=== PATIENT | female | born 1990 ===

== ENCOUNTER 2024-07-14 23:14 | Emergency (ER) | payer MEDICAID, SELFPAY ==
[2024-07-14 23:23] VITALS: BP 136/89; PULSE 87; RESP 20; TEMP 36.4; O2SAT 100
--- NOTE | 2024-07-14 23:30 | EDNOTE_ITS ---
ED Skin Abcess FB-RME/HPI General Chief complaint: Allergic Reaction Stated complaint: RASH, ITCHING Time Seen by Provider: 07/14/24 23:22 Source: patient, RN notes reviewed and old records reviewed Arrival date/time: 07/14/24 23:14 Mode of arrival: ambulatory Limitations: no limitations RME / HPI RME / HPI narrative: 34yof approx 37 weeks gestation presents to ED for generalized rash and itching that initiated this morning. Patient reports she was prescribed Flagyl yesterday for BV, she has taken 3 doses. Patient has never taken Flagyl in the past. No tongue/throat swelling, shortness of breath, nausea/vomiting or RUQ abdominal pain reported. Denies vaginal bleeding or pelvic pain. No medications or treatment since symptom onset. Related Data Previous Rx's ?Medication ?Instructions ?Recorded vitamins with calcium 1 tab PO QAM #60 tabs 12/07/23 no.72-iron 29 mg-folic acid 1 mg tablet acetaminophen 325 mg capsule 650 mg (2 x 325 mg) PO Q8HR PRN 02/21/24 fever or pain #30 caps ondansetron 4 mg disintegrating 4 mg PO Q8H PRN nausea and 02/21/24 tablet vomiting #10 tabs cetirizine 10 mg tablet (Zyrtec) 10 mg PO QDAY #20 tabs 07/15/24 clindamycin HCl 300 mg capsule 300 mg PO BID 7 days #14 caps 07/15/24 diphenhydramine HCl 25 mg capsule 50 mg (2 x 25 mg) PO Q4H PRN 07/15/24 (Benadryl) itching #30 caps famotidine 40 mg tablet (Pepcid) 40 mg PO QDAY #20 tabs 07/15/24 Allergies Allergy/AdvReac Type Severity Reaction Status Date / Time No Known Allergies Allergy Verified 01/29/24 17:52 Review of Systems Review of Systems Systems Reviewed: All systems reviewed, normal except as documented Constitutional Constitutional: Denies chills, Denies fever(s) and Denies headache(s) ENT Ears, Nose, Mouth, and Throat: Denies headache(s), Denies throat swelling and Denies tongue swelling Cardiovascular Cardiovascular: Denies dyspnea Respiratory Respiratory: Denies dyspnea Gastrointestinal Gastrointestinal: Denies abdominal pain, Denies nausea and Denies vomiting Genitourinary Genitourinary: Denies abnormal vaginal bleeding and Denies pelvic pain Integumentary/Breasts Skin/Breast: Reports pruritus and Reports rash Neurologic Neurologic: Denies headache(s) Allergic/Immunologic Allergic/Immunologic: Denies throat swelling and Denies tongue swelling Past Medical History Past Medical History RESPIRATORY: Positive Asthma GASTROINTESTINAL: Positive Obesity PSYCHO/SOCIAL: Positive Anxiety Surgical History SURGICAL: Positive Knee Sx (bilateral) and of Back Surgery ED Exam General Limitations: Present no limitations General appearance: Present alert and in no apparent distress Head Head exam: Present atraumatic and normocephalic Eye Eye exam: Present normal appearance, PERRL and EOMI ENT ENT exam: Present normal exam and mucous membranes moist Neck Neck exam: Present normal inspection and full ROM Chest Chest inspection: Present normal inspection and symmetric chest wall rise Respiratory Respiratory exam: Present normal lung sounds bilaterally; Absent respiratory distress, wheezes or stridor Cardiovascular Cardiovascular exam: Present regular rate and normal rhythm Abdominal Exam Abdominal exam: Present soft and other (Gravid uterus); Absent tenderness Extremities Exam Extremities exam: Present normal inspection and full ROM Neurological Exam Neurological exam: Present alert and oriented X3 Psychiatric Psychiatric exam: Present normal affect and normal mood Skin Skin exam: Present other (Very faint maculopapular rash to b/l upper extremities) Course Quality Measures none Orders Category Date Time Status CMP [Comprehensive Metabolic Panel] Stat Lab 07/14/24 23:35 Completed DiphenhydrAMINE [Benadryl] Med 07/14/24 23:29 Discontinued 50 mg PO X1 ONE Famotidine [Pepcid] Med 07/14/24 23:29 Discontinued 40 mg PO X1 ONE lorataDINE [Claritin] Med 07/15/24 00:36 Discontinued 10 mg PO X1 ONE Vital Signs Vital signs: Vital Signs Temperature 97.6 F 07/14/24 23:23 Pulse Rate 87 07/14/24 23:23 Respiratory Rate 20 07/14/24 23:23 Blood Pressure 136/89 H 07/14/24 23:23 Pulse Oximetry (%) 100 07/14/24 23:23 Oxygen Delivery Method Room Air 07/14/24 23:23 Skin / Abscess / Foreign Body MDM Narrative MDM Narrative:: 34yof approx 37 weeks gestation presents to ED for generalized rash and itching that initiated this morning. Patient reports she was prescribed Flagyl yesterday for BV, she has taken 3 doses. Patient has never taken Flagyl in the past. No tongue/throat swelling, shortness of breath, nausea/vomiting or RUQ abdominal pain reported. Denies vaginal bleeding or pelvic pain. No medications or treatment since symptom onset. Patient reassessed. Itching improved after medications administered. Patient is well-appearing, no evidence of airway compromise or respiratory distress. Recommended Benadryl, Pepcid, Zyrtec as needed. Instructed to discontinue flagyl, will rx clindamycin for BV. Stable for discharge, RTED precautions given. Patient data External records reviewed:: [facility] previous records (02/21/2024 ED visit for covid) Clinical information provided by:: patient Social determinants that could affect healthcare access:: none Patient has the following chronic illnesses:: anxiety How is presenting disease/condition affected by chronic disease/condition?: exacerbated by Evaluation data The following diagnostics were reviewed and interpreted by me:: lab results Lab and/or radiology exams considered but not ordered:: OB ultrasound: Denies vaginal bleeding or pelvic pain Interpretation Summary: Alk phos mildly elevated. T. bili and AST/ALT wnl Medications / Prescriptions Medications or Prescriptions considered but not ordered:: Steroid Medication administrations:: Medication Administration History Discontinued Medications Diphenhydramine HCl (Diphenhydramine 25 Mg Capsule) 50 mg PO X1 ONE Stop: 07/14/24 23:30 Last Admin: 07/14/24 23:38 Dose: 50 mg Documented By: OA Famotidine (Famotidine 20 Mg Tablet) 40 mg PO X1 ONE Stop: 07/14/24 23:30 Last Admin: 07/14/24 23:38 Dose: 40 mg Documented By: OA Loratadine (Loratadine 10 Mg Tablet) 10 mg PO X1 ONE Stop: 07/15/24 00:37 Last Admin: 07/15/24 00:52 Dose: 10 mg Documented By: CB Above medications administered in ED Consultations Consultation(s) initiated? (list below): No Diagnosis Skin/Abscess Differential Diagnosis: urticaria, allergic reaction to drug, insect bites and contact dermatitis Most likely diagnosis given after review of the tests above:: Allergic reaction to drug Admission Indicated Admission indicated?: not indicated Admission Request Was there a request for admission?: No Disposition Plan Disposition Plan: Discharge Discharge Attestation Discharge Attestation: The patient and all family members were given an opportunity to ask questions and understood the discharge instructions. Discharge instructions specifically effects, indications for sooner follow up or return to the emergency department, and the expected course of current diagnosis. Patient condition: Stable Discharge Plan Plan Patient Disposition: HOME (Self Care) Patient condition on transfer: Stable Prescriptions/Referrals Prescriptions/Med Rec: New clindamycin HCl 300 mg capsule 300 mg PO BID 7 Days Qty: 14 0RF diphenhydramine HCl [Benadryl] 25 mg capsule 50 mg PO Q4H PRN (Reason: itching) Qty: 30 0RF cetirizine [Zyrtec] 10 mg tablet 10 mg PO QDAY Qty: 20 0RF famotidine [Pepcid] 40 mg tablet 40 mg PO QDAY Qty: 20 0RF No Action ondansetron 4 mg tablet,disintegrating 4 mg PO Q8H PRN (Reason: nausea and vomiting) Qty: 10 0RF acetaminophen 325 mg capsule 650 mg PO Q8HR PRN (Reason: fever or pain) Qty: 30 0RF PNV,calcium 72-iron,carb-folic 29 mg iron- 1 mg tablet 1 tab PO QAM Qty: 60 1RF Referrals: Sherman Parekh MD [Primary Care Provider] - In 1 week Problem List Clinical Impression: Allergic reaction, Pruritus Patient/Caregiver Discharge Instructions Education Materials: ED Medicine Reaction: Allergic Additional Instructions: Stop the metronidazole. Print Language: Lao Stand Alone Forms: Raquel Award Info., Patient Portal Info Letter PA/FIRE EXTINGUISHER TESTER Supervising Physician PA/FIRE EXTINGUISHER TESTER Supervising Physician: Pritesh
[2024-07-14] MEDS: DiphenhydrAMINE 25 MG CAPSULE 50 MG PO (23:38)
[2024-07-14] MEDS: FAMOTIDINE 20 MG TABLET 40 MG PO (23:38)
[2024-07-15 00:02] LABS: Alanine Aminotransferase 8 U/L (10-49); Albumin, Serum 3.9 gm/dL (3.5-5.0); Albumin/Globulin Ratio 1.4 (1.2-2.2); Alkaline Phosphatase 148 U/L (46-116); Anion Gap 11 (7-16); Aspartate Amino Transferase 23 U/L (0-34); BUN/Creatinine Ratio 8 Ratio (12-20); Bilirubin,Total 0.4 mg/dL (0.3-1.2); Blood Urea Nitrogen < 5 mg/dL (9-23); Calcium 8.7 mg/dL (8.3-10.6); Calcium (Corrected) 8.8 mg/dL (8.5-10.1); Carbon Dioxide 20.8 mMol/L (20.0-31.0); Chloride 106 mMol/L (98-107); Creatinine (Component) 0.6 mg/dL (0.6-1.3); Globulin 2.8 gm/dL (2.3-3.5); Glucose 108 mg/dL (74-106); Osmolality,Calculated 273 (275-295); Potassium 3.6 mMol/L (3.4-5.1); Sodium 138 mMol/L (136-145); Total Protein 6.7 gm/dL (5.7-8.2); eGFR > 60 See Note
[2024-07-15] MEDS: lorataDINE 10 MG TABLET PO (00:52)
== END 2024-07-15 01:25 | disposition home or self-care (01) ==
PROVIDERS: Physician Assistant; Emergency Provider Emergency Medicine; PCP Family Medicine
DX: L29.9 Pruritus, unspecified (principal)
CPT/HCPCS: 36415; 80053; 99283; A9270

== ENCOUNTER 2024-07-15 05:04 | Emergency (ER) | payer MEDICAID, SELFPAY ==
[2024-07-15 05:05] VITALS: BMI 34.7
[2024-07-15 05:24] VITALS: BP 134/90; PULSE 78; RESP 22; TEMP 36.5; O2SAT 100
== END 2024-07-15 06:04 | disposition left against medical advice (07) ==
LOC: SERX 07:08
PROVIDERS: Emergency Provider Emergency Medicine
DX: Z53.21 Procedure and treatment not carried out due to patient leaving prior to being seen by health care provider (principal)
CPT/HCPCS: 99281

== ENCOUNTER 2024-08-06 08:11 | Inpatient (IN) | payer MEDICAID, SELFPAY ==
--- NOTE | 2024-07-28 18:54 | ESHP_ITS ---
RE: BEHZAD POSADA : 1990 DATE OF ADMISSION: 08/06/2024 HISTORY OF PRESENT ILLNESS: This is a 34-year-old 2, para 1 with due date of August 05 with intrauterine at 40 weeks who presents for induction of labor. The patient denies any leaking or bleeding. She reports normal movement. She has occasional contractions. Her care was complicated by iron deficiency anemia and elevated blood pressures at 36-37 weeks gestation in the office. A 24 hour urine collection showed 95 mg of protein and normal PIH blood work. Her labs today show no protein in her urine and her protein creatinine ratio of 0.13 with normal PIH blood work. ALLERGIES: METRONIDAZOLE. MEDICATIONS: 1. multivitamin 1 p.o. daily. 2. Ferrous sulfate 325 mg 1 p.o. b.i.d. SOCIAL HISTORY: The patient uses marijuana. She denies any alcohol use. PAST MEDICAL HISTORY: Bipolar disorder, history of alcoholism in the past, history of Chlamydial cervicitis, genuine stress urinary incontinence, mild COVID-19 infection in 2019, iron deficiency anemia. FAMILY HISTORY: Mother and brother have diabetes. OBSTETRIC HISTORY: In 2019, 40 week, normal vaginal delivery, 6 pounds 7 ounce male. No complications. PAST SURGICAL HISTORY: Denies. REVIEW OF SYSTEMS: She denies any chest pain, palpitations, cough, fever, shortness of breath or lower extremity pain. She has a headache but no change in vision, right upper quadrant pain or swelling in her face or hands. PHYSICAL EXAMINATION: VITAL SIGNS: Blood pressure 175/106 and 169/93 heart rate 88, respirations 18, temperature 98.6, weight 202 pounds. HEENT: Oropharynx and sclerae are clear. LUNGS: Clear to auscultation bilaterally. HEART: Regular rate and rhythm. ABDOMEN: Gravid term size, consistent with estimated weight 7.5 pounds. PELVIC: Closed /thick / -3 . EXTREMITIES: Nontender. SKIN: No gross rashes or lesions. NEUROLOGIC: No focal deficits. ASSESSMENT AND PLAN: Intrauterine at 40 weeks 1d, Gestational HTN, induction of labor. Anticipate spontaneous vaginal delivery. Informed consent was obtained. The patient made aware of the risks, complications, alternatives, and benefits of the proposed procedure and she agrees. She is aware of the risk of operative vaginal delivery, delivery and agrees with these modes of delivery if indicated. Labetalol 200mg po. Cervidil 20mg vaginal supp. DT: 16:51:47 TT: 18:30:00 Ref: [id number] - TID: [id number] MTDD
[2024-08-06] VITALS (214 sets, daily range): BP systolic 118–204; BP diastolic 59–108; PULSE 67–95; RESP 18–20; TEMP 36.3–36.9; O2SAT 80–100
[2024-08-06 09:19] LABS: Basophils % (Auto) 0 % (0-2.5); Eosinophils # (Auto) 0.1 Thou/mm3 (0.0-0.5); Eosinophils % (Auto) 2 % (0-10); Hematocrit 33.8 % (36.0-46.0); Hemoglobin 11.6 g/dL (12.0-16.0); Immature Granulocytes % (Auto) 1 % (0-0); Immature Granulocytes Auto 0.04 Thou/mm3 (0.00-0.00); Lymphocytes # (Auto) 1.5 Thou/mm3 (1.0-4.8); Lymphocytes % (Auto) 19 % (10-50); Mean Corpuscular HGB Conc 34.3 g/dl (31.0-37.0); Mean Corpuscular Volume 85 fL (80-100); Monocytes # (Auto) 0.4 Thou/mm3 (0.0-0.8); Monocytes % (Auto) 5 % (0-12); Neutrophils # (Auto) 6.1 Thou/mm3 (1.8-7.7); Neutrophils % (Auto) 75 % (37-80); Nucleated Red Blood Cell % 0 /100 WBC (0); Platelet Count 246 Thou/mm3 (140-440); RDW Standard Deviation 45.3 fL (36.4-46.3); White Blood Count 8.2 Thou/mm3 (3.6-11.0)
[2024-08-06 09:38] LABS: INR 0.9 (0.9-1.3); Partial Thromboplastin Time 28.5 Seconds (22.0-36.0); Prothrombin Time 10.3 Seconds (9.0-12.2)
[2024-08-06 09:47] LABS: Alanine Aminotransferase 9 U/L (10-49); Albumin, Serum 3.6 gm/dL (3.5-5.0); Albumin/Globulin Ratio 1.2 (1.2-2.2); Alkaline Phosphatase 162 U/L (46-116); Anion Gap 11 (7-16); Aspartate Amino Transferase 28 U/L (0-34); BUN/Creatinine Ratio 12 Ratio (12-20); Bilirubin,Total 0.5 mg/dL (0.3-1.2); Blood Urea Nitrogen 7 mg/dL (9-23); Calcium 8.5 mg/dL (8.3-10.6); Calcium (Corrected) 8.8 mg/dL (8.5-10.1); Carbon Dioxide 18.9 mMol/L (20.0-31.0); Chloride 108 mMol/L (98-107); Creatinine (Component) 0.6 mg/dL (0.6-1.3); Globulin 3.1 gm/dL (2.3-3.5); Glucose 79 mg/dL (74-106); Osmolality,Calculated 272 (275-295); Potassium 4.6 mMol/L (3.4-5.1); Sodium 138 mMol/L (136-145); Total Protein 6.7 gm/dL (5.7-8.2); Uric Acid 6.5 mg/dL (3.1-7.8); eGFR > 60 See Note
[2024-08-06 09:52] LABS: Collection Type, Urine Clean Catch
[2024-08-06 10:00] LABS: Amphetamine/Metham Scrn,Ur OB Negative (Negative); Benzoylecgonine Screen, Ur OB Negative (Negative); Opiate Screen,Urine OB Negative (Negative); THC Screen,Urine OB Negative (Negative)
[2024-08-06 10:02] LABS: Syphilis Nonreactive (Nonreactive)
[2024-08-06 10:06] LABS: Bilirubin,Urine Negative (Negative); Blood,Urine Negative (Negative); Clarity,Urine Clear (Clear/Hazy); Color,Urine Lt-Yellow (Lt Yel-Yel); Glucose, Urine Negative (Negative); Ketones,Urine Negative (Negative); Leukocyte Esterase,Urine Positive (Negative); Nitrite,Urine Negative (Negative); Protein,Urine Negative (Neg - Trace); RBC,Urine 2 /hpf (0-3); Specific Gravity,Urine 1.018 (1.001-1.035); Squamous Epithelial Cell,Urine 8 /hpf (0-5); Urobilinogen,Urine Negative mg/dL (0.0-1.0); WBC,Urine 8 /hpf (0-5)
[2024-08-06 10:07] LABS: Fibrinogen 646 mg/dL (175-375)
[2024-08-06 10:14] LABS: Creatinine,Random Urine 101 mg/dL (30-125); Protein Total, Random Urine 13 mg/dL (1-14)
--- NOTE | 2024-08-06 10:16 | XR_ITS ---
Examination: age Limited Technique: Limited transabdominal sonographic images pelvis Exam date and time: August 06, 2024 1043 hrs. Indications: Postoperative today, induction today, unknown presentation and weight Findings: Viable intrauterine gestation cephalic presentation spine maternal left Cardiac motion 136 bpm Estimated weight 3506.6 g Estimated age 38 weeks 4 days Impression: Viable intrauterine gestation cephalic presentation
[2024-08-06] MEDS: LABETALOL 100 MG TABLET 200 MG PO ×2 (11:27→20:40)
[2024-08-06] MEDS: ACETAMINOPHEN 325 MG TABLET 975 MG PO (11:54)
[2024-08-06] MEDS: DINOPROSTONE 10 MG VAG.SUPP VAGINAL (11:56)
[2024-08-07] VITALS (118 sets, daily range): BP systolic 105–155; BP diastolic 65–94; PULSE 57–94; RESP 12–19; TEMP 36.5–37.1; O2SAT 85–100
[2024-08-07] MEDS: MISOPROSTOL 50 mCg TABLET PO ×2 (00:44→05:02)
[2024-08-07] MEDS: ACETAMINOPHEN 325 MG TABLET 975 MG PO (05:08)
--- NOTE | 2024-08-07 07:49 | PD.LDPN ---
Documentation for date of: 08/07/24 OB Labor Progress Note Pain Control Comments: None needed Pelvic Exam Dilation (cm): closed Effacement (%): thick station: -3 Amniotic membrane status: Intact Contractions Contraction frequency: q 3 min Status status: Category l Assessment and Plan Comments: Failed Induction Gestational HTN BP controlled with Labetalol Delivery Patient was made aware of the risks, complications, alternatives and benefits of delivery and she agrees.
[2024-08-07] MEDS: FAMOTIDINE INJ 10 MG/ML VIAL 2 ML 20 MG IV (08:57)
[2024-08-07] MEDS: CITRIC ACID/SODIUM CITR 15 ML UDC (BICITRA) 30 ML PO (08:58)
[2024-08-07] MEDS: ceFAZolin/D5W 2 GM IV 2 GM/100 ML BAG IV (08:58)
--- NOTE | 2024-08-07 09:15 | PD.LDDS ---
DS: Providers Provider Date of admission: 08/06/24 08:11 Primary care physician: Physician No Primary/Family Admitting Provider: Saulo Bacon MD Attending Provider on Admission: Saulo Bacon MD Attending Provider on DC: Saulo Bacon MD Discharging Provider: Saulo Bacon MD DS: Diagnosis Problem List Completed Was Problem List Reviewed/Reconciled?: Yes Summary/Hosp Course Peripartum Data Procedures: Procedures Operation Date: 08/07/24 09:15 <No data on this case meets the specified criteria> Time Spent with Patient Time attestation: Total time spent providing and/or coordinating discharge services: Exam Vital Signs Temp Pulse Resp BP Pulse Ox 98.1 F 75 18 120/75 100 08/07/24 07:19 08/07/24 07:17 08/07/24 07:19 08/07/24 07:17 08/07/24 07:56 Discharge Plan Plan Patient Disposition: HOME (Self Care) Patient condition on transfer: Stable Prescriptions/Referrals Prescriptions/Med Rec: New hydrocodone-acetaminophen 5-325 mg tablet 1 tab PO Q6H MDD 4 PRN (Reason: pain) Qty: 20 0RF ibuprofen 600 mg tablet 600 mg PO Q6H PRN (Reason: pain) Qty: 30 0RF Continued PNV,calcium 72-iron,carb-folic 29 mg iron- 1 mg tablet 1 tab PO QAM Qty: 60 1RF Discontinued ondansetron 4 mg tablet,disintegrating 4 mg PO Q8H PRN (Reason: nausea and vomiting) Qty: 10 0RF acetaminophen 325 mg capsule 650 mg PO Q8HR PRN (Reason: fever or pain) Qty: 30 0RF diphenhydramine HCl [Benadryl] 25 mg capsule 50 mg PO Q4H PRN (Reason: itching) Qty: 30 0RF cetirizine [Zyrtec] 10 mg tablet 10 mg PO QDAY Qty: 20 0RF famotidine [Pepcid] 40 mg tablet 40 mg PO QDAY Qty: 20 0RF Referrals: No Primary/Family,Physician [Primary Care Provider] - Patient/Caregiver Discharge Instructions Discharge Activity: activity as tolerated Other Discharge Activity Instructions:: Follow up office 1 week. Print Language: Spanish Stand Alone Forms: Raquel Award Info., Patient Portal Info Letter Discharge Order Discharge Orders: Discharge (Routine); Ordered 08/09/24 Ordered By: Saulo Bacon Planned Discharge Date 08/09/24
--- NOTE | 2024-08-07 10:11 | PD.LDDELS ---
Data ([facility]) Data Hx Section: No : 2 Para: 1 Term: 1 : 0 : 0 Delivery Data ([facility]) Labor Data ROM Date: 08/07/24 ROM Time: 09:43 Rupture Type: AROM Amniotic Fluid: Clear Delivery Data EDC: 08/05/24 EDC calculated by:: LMP/early US confirmation Labor Onset Stage 1 Date: 08/07/24 Labor Onset Stage 1 Time: 09:43 Labor Onset Stage 2 Date: 08/07/24 Labor Onset Stage 2 Time: 09:43 Delivery Date: 08/07/24 Delivery Time: 09:43 Gestational age (weeks): 40 Gestational age (days): 2 Placenta Delivery Date: 08/07/24 Placenta Delivery Time: 09:44 Delivered by: Saulo Bacon Delivery nurse: Vicenta Mckenzie Other staff at delivery: Nurse Other staff at delivery: 2nd Nurse Other staff at delivery: RT Other staff at delivery: 2nd Nurse Other staff at delivery: Henrietta Orantes Other staff at delivery: Keya Mathias Other staff at delivery: toni Other staff at delivery: [facility] Delivery Method Delivery: Delivery Type: Primary Presentation: Vertex Position: OA Anesthesia Type Primary Anesthesia: Spinal Placenta Placenta Delivery: Manual Placenta Cultures Obtained: No Placenta Sent for Examination: No Cord Sample: Cord Blood Obtained EBL Estimated blood loss (ml): 600 Umbilical Cord Nuchal Cord: None Body Cord: None Additional Procedures none Complications Complications: None Data ([facility]) Data Infant Gender: Male Weight Grams: 3370 1 Minute Total: 8 5 Minute Total: 8
--- NOTE | 2024-08-07 12:22 | ESOP_ITS ---
RE: BEHZAD POSADA : 1990 DATE OF OPERATION: 08/07/2024 PREOPERATIVE DIAGNOSES: 1. Intrauterine at 40 weeks and 2 days. 2. Induction of labor. 3. Failed induction. POSTOPERATIVE DIAGNOSES: 1. Intrauterine at 40 weeks and 2 days. 2. Induction of labor. 3. Failed induction. PROCEDURE PERFORMED: Primary low transverse section via Pfannenstiel incision. SURGEON: Saulo Bacon DO GROUP ART SUPERVISOR: [facility] Downey ANESTHESIA: Spinal. ANESTHESIOLOGIST: Ruth Ann Nunez CRNA ESTIMATED BLOOD LOSS: 600 mL COMPLICATIONS: None. COUNTS: Correct. PATHOLOGY: None. FINDINGS: A live male . Cephalic presentation. Clear amniotic fluid. Apgars 8 and 8, weight 3370 grams. Clear amniotic fluids. Uterus, ovaries, fallopian tubes grossly within normal limits. Placenta was removed, complete and intact. DESCRIPTION OF PROCEDURE: After proper informed consent was obtained and the patient was made aware of the risks, complications, alternatives, and benefits of the proposed procedure, she was taken to the operating room where she underwent induction of spinal anesthesia. She was placed in the dorsal supine position with leftward tilt. She was prepped and draped in the usual sterile fashion. A timeout was performed. A Pfannenstiel skin incision was made with scalpel carried through to the underlying layer fascia with the Bovie. The fascia was nicked in the midline, incision was extended bilaterally with Bovie. The inferior aspect of the fascial incision was grasped with Yoan clamps, elevated. The underlying rectus muscles were dissected off with the Bovie. The rectus muscles were in the midline and apparently identified between two Jerez clamps and entered sharply with the Metzenbaum scissors. The incision was extended superiorly and inferiorly with good visualization of the bladder. The bladder blade was then inserted. The vesicouterine peritoneum was incised transversely and the bladder flap created digitally. Bladder blade was reinserted. The lower uterine segment was incised in transverse fashion with the scalpel. The incision was extended bilaterally digitally. The infant's head delivered. The mouth and nose suctioned with bulb suction. Shoulder and body delivered atraumatically. The cords were clamped and cut. The infant was sent off to awaiting pediatric staff. Cord blood and gases were sent. The placenta was then removed manually. The uterus exteriorized and cleared of all clots and debris. The uterine incision was repaired in #1-0 chromic catgut suture in a running locking fashion. The second layer of same suture was used to imbricate the first layer and obtained excellent hemostasis. The vesicouterine peritoneum was closed with 2-0 chromic catgut suture in running fashion. The uterus was returned to the abdomen. The gutters were cleared of all clots and debris. The fundus was firm and the peritoneum was closed with 0 chromic catgut suture in running fashion. The muscle was closed with 0 chromic catgut suture in running fashion. The fascia was closed with 0 Vicryl beginning at each angle and ending in the center in a running fashion. Subcutaneous tissue was irrigated with normal saline solution and found to be hemostatic and closed with 2-0 chromic catgut suture in a running fashion. The skin was closed with 4-0 Monocryl and Dermabond Prineo dressing was applied. A sterile pressure dressing was applied. She tolerated the procedure well. Counts were correct. I discussed with the patient, the nature of her condition, the intraoperative findings, and expectation for recovery. All questions answered. DT: 10:14:07 TT: 12:20:00 Ref: [id number] - TID: [id number]
[2024-08-07 15:52] LABS: Basophils % (Auto) 0 % (0-2.5); Eosinophils % (Auto) 0 % (0-10); Hematocrit 35.3 % (36.0-46.0); Immature Granulocytes % (Auto) 1 % (0-0); Lymphocytes # (Auto) 0.8 Thou/mm3 (1.0-4.8); Lymphocytes % (Auto) 4 % (10-50); Mean Corpuscular Hemoglobin 29.2 pg (25.0-35.0); Mean Corpuscular Volume 86 fL (80-100); Monocytes # (Auto) 0.2 Thou/mm3 (0.0-0.8); Monocytes % (Auto) 1 % (0-12); Neutrophils # (Auto) 18.8 Thou/mm3 (1.8-7.7); Neutrophils % (Auto) 94 % (37-80); Nucleated Red Blood Cell % 0 /100 WBC (0); Platelet Count 239 Thou/mm3 (140-440); RDW Standard Deviation 46.2 fL (36.4-46.3); Red Blood Count 4.11 Miln/mm3 (4.00-5.20); White Blood Count 19.9 Thou/mm3 (3.6-11.0)
[2024-08-07] MEDS: OXYTOCIN in NS 20 units 20 UNIT/1,000 ML BAG 125 UNIT IV (15:59)
--- NOTE | 2024-08-07 23:05 | PC.NURSE ---
Pt called out c/o pain at IV site on right wrist, stating that the pain in her arm felt like a pain scale of 15 out of 10. Upon assessment, pt IV site was swollen. Infusion was paused and IV @ right wrist was then discontinued. Pt was still receiving IV fluids and medications so nurse educated pt on having to place another IV in to continue treatment. Per pt, she was okay with it. I attempted 2 times on the left hand, both unsuccessful. Daylin RN tried 2 times on right arm @ bicep and forearm, both unsuccessful. Rebecca, charge nurse, attempted x1 @ right antecubital, successful insertion.
[2024-08-07] MEDS: KETOROLAC INJ 30 MG/ML VIAL IVP (23:11)
[2024-08-08] MEDS: HYDROcodone/APAP 5/325 TABLET 1 TAB PO (04:19)
[2024-08-08 04:20] VITALS: BP 124/77; PULSE 74; RESP 20; TEMP 36.3; O2SAT 99
[2024-08-08] MEDS: IBUPROFEN TAB 400 MG TABLET 800 MG PO ×2 (07:13→17:01)
[2024-08-08 08:00] VITALS: BP 113/73; PULSE 76; TEMP 36.7; O2SAT 98
--- NOTE | 2024-08-08 09:04 | ESPR_ITS ---
RE: BEHZAD POSADA : 1990 DATE OF SERVICE: 08/08/2024 SUBJECTIVE: Postop day #1, the patient denies any problem or complaint. She is voiding. She is ambulating. She is tolerating her diet. She is passing flatus. She denies any excessive vaginal bleeding. She denies any dizziness or lightheadedness. She denies any chest pain, palpitations, shortness of breath or lower extremity pain. OBJECTIVE: Vital Signs: Blood pressure 124/77, heart rate 74, respirations 20, temperature is 97.4, pulse ox is 99% on room air. Lungs: Clear to auscultation bilaterally. Heart: Regular rate and rhythm. Abdomen: Dressing is dry and intact. Fundus is firm. Extremities: Nontender. LABORATORY DATA: Hemoglobin pre-delivery is 11.6, postdelivery is 12.0. ASSESSMENT: Postop day #1, status post delivery. PLAN: Remove dressing, encourage ambulation, discontinue IV, possible discharge home tomorrow. DT: 08:01:36 TT: 09:03:00 Ref: [id number] - TID: [id number]
[2024-08-08 11:10] VITALS: BP 112/75; PULSE 64; RESP 16; O2SAT 98
[2024-08-08] MEDS: HYDROcodone/APAP 5/325 TABLET 2 TAB PO ×2 (11:12→21:29)
[2024-08-08 11:15] VITALS: BP 112/75; PULSE 64; RESP 19; TEMP 36.7; O2SAT 98
[2024-08-08] MEDS: Milk Of Magnesia Susp 30 ML UDC PO (17:01)
[2024-08-08 20:54] VITALS: BP 115/72; PULSE 87; RESP 16; TEMP 36.8; O2SAT 99
[2024-08-09] MEDS: IBUPROFEN TAB 400 MG TABLET 800 MG PO (01:06)
[2024-08-09 03:30] VITALS: BP 117/74; PULSE 70; RESP 18; TEMP 36.2; O2SAT 98
[2024-08-09] MEDS: Milk Of Magnesia Susp 30 ML UDC PO (05:02)
[2024-08-09 08:00] VITALS: BP 122/72; PULSE 81; RESP 20; TEMP 36.9; O2SAT 98
[2024-08-09] MEDS: HYDROcodone/APAP 5/325 TABLET 1 TAB PO (08:10)
--- NOTE | 2024-08-09 09:52 | ESPR_ITS ---
RE: BEHZAD POSADA : 1990 DATE OF SERVICE: 08/09/2024 SUBJECTIVE: Postoperative day #2, the patient denies any problem or complaint. She is voiding. She is ambulating. She is tolerating diet. She is passing flatus. She denies any excessive vaginal bleeding. She denies any dizziness or lightheadedness. She denies any chest pain, palpitations, shortness of breath or lower extremity pain. She denies any depression or anxiety. OBJECTIVE: Vital Signs: Blood pressure 117/74, heart rate 70, respirations 18, temperature 97.2, pulse ox is 98% on room air. Lungs: Clear to auscultation bilaterally. Heart: Regular rate and rhythm. Abdomen: Incision clear and intact. Fundus is firm. Extremities: Nontender. ASSESSMENT: Postop day #2, status post delivery. PLAN: Discharge home. Discharge instructions were given. Follow up in the office in 1 week. DT: 07:46:30 TT: 09:02:00 Ref: [id number] - TID: [id number]
--- NOTE | 2024-08-09 11:06 | PC.NURSE ---
Received update from URVASHI Erazo after her visit with patient. Will await for URVASHI notes before discharge.
--- NOTE | 2024-08-09 11:51 | PC.CC ---
Patient is a 34-year-old, female, present to for delivery of baby boy named Jeferson West. ASW, Dilcia, met with patient [id number] to do initial assessment due scoring high on the depression scale, according to COLIN Garcia. ASW introduced herself, role in the agency, reason for visit, and discussed limits of confidentiality. Patient appeared alert and oriented to self, time, place, and situation. Patient made good eye contact. Patient was cooperative. Patient?s behavior appeared ordinary. No signs of delusions or hallucinations. Patient reports she has suffered from depression off and on since she was an adolescent. Per patient, she is connected to [facility], she discharged from therapy in July 2023, but has since re-referred herself to seek services. Patient reports she does not take medication and has never taken medication for her symptoms of depression. Patient denies current or past suicidal and homicidal ideations, visual and auditory hallucinations. Patient denied past suicide attempts and reports she has never been on a 5150-hold. Patient denied substance use and domestic violence. Patient is knowledgeable in accessing resources. Patient reports she has a support system that includes her sisters and father; however, her sisters live out of town. Patient reports her father will be coming to stay with her to help her with the care of her 4 year-old son Noam West. Patient denies current of past CWS involvement. Patient reports she has all the supplies she needs for her . Patient is receiving WIC and SNAP. ASW provided psychoeducation regarding baby blues and Post- Depression, as well as counseling groups at [facility], and [facility]. SW provided community resources: Warm Line and Crisis Line. ASW provided an update to bedside COLIN Garcia.
== END 2024-08-09 13:10 | disposition home or self-care (01) | DRG 540 ==
LOC: S4SX 08-07 11:21 → S4NX 08-07 12:46
PROVIDERS: Admitting Provider Specialist; Visit Provider Specialist
PROC: 10D00Z1 Extraction of Products of Conception, Low, Open Approach (ICD-10-PCS; CPT 59514; principal; 2024-08-07 09:00)
DX: O48.0 Post-term pregnancy (principal); O13.4 Gestational [pregnancy-induced] hypertension without significant proteinuria, complicating childbirth; O99.02 Anemia complicating childbirth; D50.9 Iron deficiency anemia, unspecified; Z37.0 Single live birth; Z3A.40 40 weeks gestation of pregnancy; O61.1 Failed instrumental induction of labor
CPT/HCPCS: 36415; 59409; 76815; 80053; 80307; 81001; 82570; 84156; 84550; 85025; 85384; 85610; 85730; 86780; 86850; 86900; 86901; 94762; A4649; J0689; J1885; J2210; J2250; J2274; J2371; J2590; J3010; J3490; A9270; J2270

== ENCOUNTER → 2024-11-16 | Outpatient (CLI) | payer MEDICAID, SELFPAY ==
--- NOTE | 2024-11-16 | XR_ITS ---
Examination: Lumbar spine, 5 views Technique: Lumbar spine AP, lateral, coned lateral lower lumbar spine, bilateral obliques 5 views Exam date and time: November 16, 2024 1216 hours INDICATIONS: Low back pain several years. FINDINGS: Adequate alignment lumbar vertebral bodies No lumbar fracture Mild disc narrowing L5-S1 No spondylolisthesis IMPRESSION: Mild disc narrowing L5-S1
--- NOTE | 2024-11-16 | XR_ITS ---
Examination: Forearm, left, 2 views. Technique: Forearm, AP, lateral 2 views Date and time of exam: November 16, 2024 1216 hours INDICATIONS: Patient fell today with injury to the forearm, forearm pain. FINDINGS: No fracture or dislocation No foreign body IMPRESSION: Negative for fracture mid
--- NOTE | 2024-11-16 | XR_ITS ---
Examination:Right hip AP, lateral, AP pelvis 3 views Technique: Hip AP lateral, AP pelvis, 3 views Exam date and time:November 16, 2024, 16 hours INDICATIONS: Right hip pain beginning 3 weeks ago. FINDINGS: No right hip fracture or dislocation No avascular necrosis No significant arthritic change Left hip bones of the pelvis intact IMPRESSION: Negative for osseous abnormality.
== END | disposition home or self-care (01) ==
PROVIDERS: PCP Family Medicine; Referring Provider Family Medicine; Visit Provider Family Medicine
DX: M25.551 Pain in right hip (principal); M48.07 Spinal stenosis, lumbosacral region; S59.912A Unspecified injury of left forearm, initial encounter; W19.XXXA Unspecified fall, initial encounter
CPT/HCPCS: 72110; 73090; 73502

== ENCOUNTER 2025-02-24 07:20 | Emergency (ER) | payer MEDICAID, SELFPAY ==
[2025-02-24 07:37] VITALS: BP 135/85; PULSE 87; RESP 19; TEMP 36.9; O2SAT 98; BMI 36.4
[2025-02-24] MEDS: DIAZEPAM 5 MG TABLET PO (09:47)
[2025-02-24] MEDS: KETOROLAC INJ 60 MG/2 ML VIAL 15 MG IM (09:48)
--- NOTE | 2025-02-24 10:37 | PD.EDADULT ---
ED General RME/HPI General Chief complaint: General Adult/Misc Complain Stated complaint: FEELS LIKE ITS HARD TO SWALLOW. Time Seen by Provider: 02/24/25 08:12 Arrival date/time: 02/24/25 07:20 Limitations: no limitations RME / HPI RME / HPI narrative: patient with sore throat. denies f,c,n,v,cp,palp,abd pain, recent travel or sick contacts. denies drugs, alc smoking. patient is able to eat and drink fluids w.o difficulty,. symptoms have been present for some time, unchanged. Related Data Previous Rx's ?Medication ?Instructions ?Recorded vitamins with calcium 1 tab PO QAM #60 tabs 12/07/23 no.72-iron 29 mg-folic acid 1 mg tablet hydrocodone 5 mg-acetaminophen 325 1 tab PO Q6H PRN pain #20 tabs 08/07/24 mg tablet ibuprofen 600 mg tablet 600 mg PO Q6H PRN pain #30 tabs 08/09/24 Allergies Allergy/AdvReac Type Severity Reaction Status Date / Time metronidazole Allergy Severe Hives and Verified 02/24/25 07:21 SOB ED Exam General Limitations: Present no limitations General appearance: Present alert, in no apparent distress and anxious Head Head exam: Present atraumatic, normocephalic and normal inspection Eye Eye exam: Present normal appearance, PERRL and EOMI; Absent scleral icterus, conjunctival injection, periorbital swelling or periorbital tenderness ENT ENT exam: Present normal exam and normal oropharynx Neck Neck exam: Present normal inspection, full ROM and trachea midline; Absent tenderness, meningismus, lymphadenopathy or thyromegaly Chest Chest inspection: Present normal inspection and symmetric chest wall rise Respiratory Respiratory exam: Present normal lung sounds bilaterally; Absent respiratory distress, wheezes, stridor or accessory muscle use Cardiovascular Cardiovascular exam: Present regular rate and normal rhythm Abdominal Exam Abdominal exam: Present soft; Absent distention, tenderness, guarding, rebound or rigidity Extremities Exam Extremities exam: Present normal inspection and full ROM Back Exam Back exam: Present normal inspection and full ROM Neurological Exam Neurological exam: Present alert, oriented X3, CN II-XII intact and normal gait; Absent motor sensory deficit Psychiatric Psychiatric exam: Present normal affect Skin Skin exam: Present warm, dry and intact Course Quality Measures none Orders Category Date Time Status Diazepam [Valium] Med 02/24/25 08:13 Discontinued 5 mg PO X1 ONE Ketorolac Inj [Toradol Inj] Med 02/24/25 08:13 Discontinued 15 mg IM X1 ONE Vital Signs Vital signs: Vital Signs Temperature 98.5 F 02/24/25 07:37 Pulse Rate 87 02/24/25 07:37 Respiratory Rate 19 02/24/25 07:37 Blood Pressure 135/85 H 02/24/25 07:37 Pulse Oximetry (%) 98 02/24/25 07:37 Oxygen Delivery Method Room Air 02/24/25 07:37 Discharge Plan Plan Patient Disposition: HOME (Self Care) Prescriptions/Referrals Prescriptions/Med Rec: No Action PNV,calcium 72-iron,carb-folic 29 mg iron- 1 mg tablet 1 tab PO QAM Qty: 60 1RF hydrocodone-acetaminophen 5-325 mg tablet 1 tab PO Q6H MDD 4 PRN (Reason: pain) Qty: 20 0RF ibuprofen 600 mg tablet 600 mg PO Q6H PRN (Reason: pain) Qty: 30 0RF Referrals: Sherman Parekh MD [Primary Care Provider] - In 1 week Problem List Clinical Impression: Neck pain Patient/Caregiver Discharge Instructions Education Materials: Back Basics: A Healthy Spine Additional Instructions: Please follow-up with your primary care doctor within 1 to 2 days, request evaluation by physical therapist for ongoing strengthening of your neck and back. Return immediately if you have worsening symptoms, difficulty breathing or any other symptom of concern. Print Language: Japanese Stand Alone Forms: Raquel Award Info., Patient Portal Info Letter MDM Narrative [facility] hospital course: Patient presents with sore throat. Uvula midline, tongue not elevated or deviated, no post oropharyngeal exudates or swelling. no stridor. les slikely rpa, cyber operator, ludwigs or deepspace neck infection. offered meds for symptom relief after having a joint decision making conversation with patient. will follow up with pcp, close returnn precautiosn provided Clinical Information Provided by patient Medical Records Reviewed [facility] Meds/Rx Considered, not Ordered None Labs/Rad/Tests considered, not Ordered None Chronic Illness/Social Conditions which may negatively complicate care or outcome(s)-explain: None or not applicable EKG EKG not done Lab Interpretation Labs: none Imaging Imaging interpretation: none Medication Administration(s) Medication Administration History Discontinued Medications Diazepam (Diazepam 5 Mg Tablet) 5 mg PO X1 ONE Stop: 08/23/25 08:14 Last Admin: 02/24/25 09:47 Dose: 5 mg Documented By: Ketorolac Tromethamine (Ketorolac Inj 60 Mg/2 Ml Vial) 15 mg IM X1 ONE Stop: 02/24/25 08:14 Last Admin: 02/24/25 09:48 Dose: 15 mg Documented By: see above Dispositon Disposition: Discharge Home
== END 2025-02-24 11:00 | disposition home or self-care (01) ==
PROVIDERS: Emergency Provider Emergency Medicine; PCP Family Medicine
DX: M54.2 Cervicalgia (principal); J02.9 Acute pharyngitis, unspecified
CPT/HCPCS: 96372; 99282; J1885; A9270

== ENCOUNTER → 2025-03-16 | Outpatient (CLI) | payer MEDICAID, SELFPAY ==
--- NOTE | 2025-03-16 09:56 | XR_ITS ---
Examination: Foot, left, 3 views Technique: AP, oblique, lateral views foot, 3 views Date and time of exam: March 16, 2025, 0958 hours INDICATIONS: Left foot pain beginning 2 months ago. FINDINGS: Adequate bone density. No fracture or dislocation. No plantar posterior bony calcaneal spur IMPRESSION: No plantar posterior bony calcaneal spur
== END | disposition home or self-care (01) ==
PROVIDERS: PCP Family Medicine; Referring Provider Family Medicine; Visit Provider Family Medicine
DX: M79.672 Pain in left foot (principal)
CPT/HCPCS: 73630

== ENCOUNTER 2025-04-09 18:12 | Emergency (ER) | payer MEDICAID, SELFPAY ==
[2025-04-09 18:15] VITALS: BP 148/102; PULSE 120; RESP 20; TEMP 37.2; O2SAT 95
--- NOTE | 2025-04-09 18:15 | EDNOTE_ITS ---
ED General RME/HPI General Stated complaint: LONG-TERM CLEARANCE Time Seen by Provider: 04/09/25 18:14 Arrival date/time: 04/09/25 18:12 CC: Medical clearance HPI patient presents to the ER handcuffed mildly unstable on her feet but ambulating, and following commands. No airbag deployment. Minimal intrusion to the vehicle per PD. Patient has slurred speech and admits that she has a problem with alcohol. Related Data Previous Rx's ?Medication ?Instructions ?Recorded vitamins with calcium 1 tab PO QAM #60 tabs 0 12/07/23 no.72-iron 29 mg-folic acid 1 mg tablet hydrocodone 5 mg-acetaminophen 325 1 tab PO Q6H PRN pa in #20 tabs 08/07/24 mg tablet ibuprofen 600 mg tablet 600 mg PO Q6H PRN pain #30 t abs 08/09/24 Allergies Allergy/AdvReac Type Severity Reaction Status Date / Time metronidazole Allergy Severe Hives and Verified 02/24/25 07:21 SOB Review of Systems Review of Systems Narrative Review of Systems: GEN: No fever, no chills, no weight loss EYES: No discharge, no visual changes, no pain HEENT: No ear pain, no congestion, no sore throat PULM: No shortness of breath, no cough, no congestion CV: No chest pain, no dyspnea on exertion, no palpitations GI: No nausea, no vomiting, no diarrhea, no pain, no constipation : No frequency, no urgency, no dysuria MUSC/SKEL: No joint pain, no back pain SKIN: No rash PSYCH: No hallucinations, no depression HEME/LYMPH: No easy bleeding or bruising tendencies NEURO: No weakness, no headache Past Medical History Past Medical History NEUROLOGIC: Negative Neurological Disorders, Seizures or Amyotrophic Lateral Sclerosis (ALS/Opal Gehrig's) CARDIAC: Positive Cardiac Disorders and Hypertension; Negative Myocardial Infarction, Cardiac Arrhythmia, Atrial Fibrillation, Angina, Heart Murmur, Coronary Artery Disease, Atherosclerotic Heart Disease, Peripheral Vascular Disease, Hypercholesterolemia, Aneurysm, Congestive Heart Failure, Congenital Heart Disease, Valvular Heart Disease, Rheumatic Fever, Cardiomyopathy, Edema, Pericarditis, Cellulitis, Deep Vein Thrombosis, Hypotension or Varicose Veins RESPIRATORY: Positive Asthma; Negative Chronic Obstructive Pulmonary Disease (COPD), Bronchitis, Emphysema, Pneumonia, Pulmonary Fibrosis, Cystic Fibrosis, Tuberculosis, Pulmonary Embolism, Pulmonary Edema or Sleep Apnea GASTROINTESTINAL: Positive Obesity; Negative Gastrointestinal Disorders, Hepatitis, Cirrhosis, Pancreatitis, Celiac Disease, Gall Bladder Disease, Gastrointestinal Bleed, Esophageal Varices, Cho's Esophagus, Colitis, Ulcerative Colitis, Diverticulitis, Diverticulosis, Ulcer, Irritable Bowel, Crohn's Disease, Obstructive Bowel, Hiatal Hernia, Hemorrhoids or Gastroesophageal Reflux Disease GENITOURINARY: Negative Genitourinary Disorders or Renal Disease REPRODUCTIVE: Positive Previous Pregnancies MUSCULOSKELETAL: Positive Musculoskeletal Disorders and Degenerative Disk Disease; Negative Muscular Dystrophy, Myasthenia Gravis, Marfan's Syndrome, Arthritis, Rheumatoid Arthritis, Osteoporosis, Gout, Scoliosis, Carpal Tunnel Syndrome, Fibromyalgia, Fractures, Degenerative Joint Disease, Osteomyelitis or Poliovirus ENT: Negative Blind ENDOCRINE: Negative Endocrine Disorders, Diabetes Mellitus Type 1, Diabetes Mellitus Type 2, Hypoglycemia, Oakdale's Syndrome, [place]'s Disease, Hyperthyroidism, Hypothyroidism, Parathyroid Disease, Pituitary Disease, Systemic Lupus Erythematosus, Syndrome of Inappropriate Antidiuretic Hormone ( SIADH), Adrenal Disease or Graves' Disease HEMATOLOGIC: Positive Blood Disorders and Anemia; Negative Leukemia, Hemophilia, Thalassemia, Sickle Cell Disease or Clotting Problems PSYCHO/SOCIAL: Positive Anxiety; Negative Psychiatric Problems, Schizophrenia, Recreational Drug Use, Bipolar Disorder, Depression, Behavior Problems, Self-Mutilation, Attention Deficit Disorder, Attention Deficit Hyperactivity Disorder, Depression, Post Traumatic Stress Disorder or Eating Disorder OTHER HISTORY: Positive Hospitalization and Chicken Pox; Negative Autoimmune Disease, Down Syndrome, Autism, Developmental Delay, Shingles, Falls, Blood Transfusions, Anesthesia Reactions, Organ Transplant, Chemotherapy, Radiation Therapy, Hyperbaric Therapy, MRSA, VRSA, Vancomycin- Resistant Enterococci, Human Immunodeficiency Virus (HIV), Measles, Mumps, Rubella (Vietnamese Measles), Pertussis, Clostridium Difficile or Cancer Family History FAMILY HISTORY: Negative Family Psychiatric Problems, Family Respiratory Disorders, Family Cardiac Disorders, Family Gastrointestinal Problems, Family Cancer, Family Surgery or Family Anesthesia Reaction Surgical History SURGICAL: Positive Arthroscopy; Negative Cardiac Surgery, Open Heart Surgery, Coronary Artery Bypass Graft, Valve Replacement, Vascular Surgery, Coronary Stent, Cardiac Catheterization, Pacemaker, Angiogram, Auto Implanted Cardiovert Defib, Carotid Endarterectomy, Endocrine Surgery, Thyroidectomy, Ear Surgery, Abdominal Surgery, Nephrectomy, Transurethral Resection, Joint Replacement, Amputation, Open Reduction Internal Fixation, Neurologic Surgery, Brain Shunt, Mastectomy, Lumpectomy, Hysterectomy, Tubal Ligation, Section, Vasectomy or Organ Transplant Social History SMOKING STATUS: Never smoker SECOND HAND EXPOSURE: No SUBSTANCE USE: marijuana (History of marijuana use in the past.) ED Exam Narrative Physical exam: [General: Obese appears not in any acute distress Head normocephalic HEENT: Within acceptable limits Neck is supple nontender Chest equal chest rise nontender to palpation Respiratory: Clear to auscultation no wheezes crackles or rubs CV: Rate rhythm is regular no murmurs rubs or clicks Abdomen is distended secondary to body habitus soft nontender no masses positive bowel sounds all 4 quadrants Back: No CVA tenderness no spinous process tenderness from cervical spine thoracic and lumbar spine Skin: Intact no petechiae rash induration ulceration or crepitus Extremities: Moving all extremity against resistance cap refill less than 2 seconds neurosensory intact Neuro: Awake alert oriented x3 Glascow coma 15 no focal deficits] Course Quality Measures none Discharge Plan Plan Patient Disposition: [facility]/Court/Law Patient condition on transfer: Stable Prescriptions/Referrals Prescriptions/Med Rec: No Action PNV,calcium 72-iron,carb-folic 29 mg iron- 1 mg tablet 1 tab PO QAM Qty: 60 1RF hydrocodone-acetaminophen 5-325 mg tablet 1 tab PO Q6H MDD 4 PRN (Reason: pain) Qty: 20 0RF ibuprofen 600 mg tablet 600 mg PO Q6H PRN (Reason: pain) Qty: 30 0RF Problem List Clinical Impression: Medical clearance for incarceration Patient/Caregiver Discharge Instructions Print Language: Angolan PA/CLIN TECH Supervising Physician PA/CLIN TECH Supervising Physician: Brandon Ruano ENP MDM Clinical Information Provided by: patient and law enforcement Medical Records reviewed [facility] Meds/Rx considered, not ordered None Labs/Rad/Tests considered, not ordered None Chronic Illness/Social Conditions which may negatively complicate care or outcome(s)-explain: ETOH/drugs/substance abuse EKG EKG not done Labs Labs: none Imaging Imaging interpretation: none Medication Administration(s) none Diagnosis Differential Diagnosis ED Complaint MDM: Alcohol intoxication, chest contusion closed head injury
[2025-04-09 18:17] VITALS: BMI 28.3
== END 2025-04-09 18:53 ==
LOC: SERX 18:44
PROVIDERS: Emergency Provider Emergency Medicine
DX: Z02.89 Encounter for other administrative examinations (principal)
CPT/HCPCS: 99281